=== PATIENT | female | born 1945 | race Caucasian/White ===

== ENCOUNTER → 2017-09-24 | Outpatient (CLI) | payer OTHER, BC | LOC: FIMAGING 10:21 | PROVIDERS: ATTEND Internal Medicine | DX: Z12.31 Encounter for screening mammogram for malignant neoplasm of breast (principal) | CPT/HCPCS: G0202 ==

== ENCOUNTER 2018-07-28 07:50 | Day surgery (SDC) | payer OTHER, BC ==
[2018-07-28] MEDS ORDERED: LR 1,000 ML IV ONE (08:05)
[2018-07-28] MEDS ORDERED: LIDOCAINE 1% 2 ML INJ ID PRN (08:05)
[2018-07-28] MEDS ORDERED: PROPOFOL/EMULSION 500 MG/50 ML BOTTLE IV ONE (09:31)
[2018-07-28] MEDS ORDERED: MIDAZOLAM 2 MG/2 ML VIAL ONE (09:31)
--- NOTE | 2018-07-28 09:33 | PDGENHP ---
History and Physical - Chief Complaint FRANCISCO - History of Present Illness Chronic FRANCISCO here for 2 years F/U colonoscopy for surveillance biopsies. History Information - Allergies/Home Medication List Allergies/Adverse Reactions: amitriptyline HCl [From Elavil] Allergy (Verified 05/14/16 10:09) HEADACHE diclofenac Allergy (Verified 10/03/15 11:01) Diarrhea duloxetine HCl [From Cymbalta] Allergy (Verified 10/03/15 11:01) Vomiting Sulfa (Sulfonamide Antibiotics) Allergy (Verified 10/03/15 11:01) Swelling/neck,face,throat Home Medications: Cholecalciferol (Vitamin D3) [Vitamin D3] 4,000 unit PO DAILY 09/27/15 [Last Taken 07/27/18] Citalopram Hydrobromide [Celexa] 40 mg PO HS 09/27/15 [Last Taken 07/26/18] Herbals/Supplements -Info Only 1 ea PO DAILY 09/27/15 [Last Taken 07/27/18] I have personally reviewed and updated: family history, medical history, social history, surgical history - Past Medical History no pertinent PMH - Surgical History Reports: no pertinent surgical hx - Family History Positive for: non-pertinent - Social History Smoking Status: Never smoked Review of Systems Review of Systems: ROS: 10pt was reviewed & negative except for what was stated in HPI & below Physical Exam Physical Exam: Temp Pulse Resp BP Pulse Ox 37.0 C 77 20 127/83 H 96 07/28/18 08:26 07/28/18 08:26 07/28/18 08:26 07/28/18 08:26 07/28/18 08:26 Constitutional: no apparent distress, appears nourished Cardiovascular: regular rate and rhythym, no murmur, rub, or gallop Respiratory: no respiratory distress, no rales or rhonchi, clear to auscultation Gastrointestinal: normoactive bowel sounds, soft, non-tender abdomen, no palpable masses Skin: warm, normal color Neurologic: AAOx3, sensation intact bilaterally Assessment & Plan Assessment: FRANCISCO; R/O dysplasia. Plan: Surveillance colonoscopy with random bx's.
[2018-07-28] MEDS ORDERED: oxyCODONE IR 5 MG TAB PO PRN (09:40)
[2018-07-28] MEDS ORDERED: HYDROCODONE/APAP 5/325 TAB PO PRN (09:40)
[2018-07-28] MEDS ORDERED: ACETAMINOPHEN 500 MG TAB PO PRN (09:40)
[2018-07-28] MEDS ORDERED: NALOXONE HCL 0.4 MG/ML INJ IVP PRN (09:40)
[2018-07-28] MEDS ORDERED: ALBUTEROL 3 ML DEYVIAL IH PRN (09:40)
[2018-07-28] MEDS ORDERED: LR 500 ML IV PRN (09:40)
[2018-07-28] MEDS ORDERED: ONDANSETRON 4 MG/2 ML VIAL IVP PRN (09:40)
[2018-07-28] MEDS ORDERED: fentaNYL 100 MCG/2 ML INJ IVP PRN (09:40)
--- NOTE | 2018-07-28 09:40 | PDANEPAE ---
ANE Past Medical History - Cardiovascular History Hx Hypertension: No Hx Arrhythmias: No Hx Chest Pain: No Hx Coronary Artery / Peripheral Vascular Disease: No Hx CHF / Valvular Disease: No Hx Palpitations: No Cardiovascular History Comment: HX DVT 2002 L CALF - Pulmonary History Hx COPD: No Hx Asthma/Reactive Airway Disease: No Hx Recent Upper Respiratory Infection: No Hx Oxygen in Use at Home: No Hx Sleep Apnea: No Sleep Apnea Screening Result - Last Documented: Negative - Neurologic History Hx Cerebrovascular Accident: No Hx Seizures: No Hx Dementia: No - Endocrine History Hx Diabetes: No - Renal History Hx Renal Disorders: No - Liver History Hx Hepatic Disorders: No - Neurological & Psychiatric Hx Hx Neurological and Psychiatric Disorders: Yes Neurological / Psychiatric History Comment: CHRONIC PAIN SYNDROME. ANXIETY, PANIC ATTACKS, DEPRESSION - Cancer History Hx Cancer: Yes Cancer History Comment: SKIN CA BASAL CELL AND SQUAMOUS CELL - Congenital Disorder History Hx Congenital Disorders: No - GI History Hx Gastrointestinal Disorders: Yes Gastrointestinal History Comment: CHRONS DISEASE - Other Health History Other Health History: HX DVT R LEG. FIBROMYALGIA. OSTEOPOROSIS. BRUISES EASILY. CHRONIC L KNEE PAIN - Chronic Pain History Chronic Pain: Yes (CHRONIC PAIN BACK, KNEE, HIP, FROM FIBROMYALGIA) - Surgical History Prior Surgeries: R JOVANA. COLONSOCOPY 2013. TLKR 1993. COLONSCOPY 2010. 3 OR 4 SCOPES ON LEFT KNEE PRIOR TO KNEE REPLACEMENT. TONSILLECTOMY. D&C FOR MISSED AB ANE Review of Systems Review of Systems: - Exercise capacity METS (RN): 4 METS ANE Patient History - Allergies Allergies/Adverse Reactions: amitriptyline HCl [From Elavil] Allergy (Verified 05/14/16 10:09) HEADACHE diclofenac Allergy (Verified 10/03/15 11:01) Diarrhea duloxetine HCl [From Cymbalta] Allergy (Verified 10/03/15 11:01) Vomiting Sulfa (Sulfonamide Antibiotics) Allergy (Verified 10/03/15 11:01) Swelling/neck,face,throat - Home Medications Home Medications: Cholecalciferol (Vitamin D3) [Vitamin D3] 4,000 unit PO DAILY 09/27/15 [Last Taken 07/27/18] Citalopram Hydrobromide [Celexa] 40 mg PO HS 09/27/15 [Last Taken 07/26/18] Herbals/Supplements -Info Only 1 ea PO DAILY 09/27/15 [Last Taken 07/27/18] - NPO status NPO Since - Liquids (Date): 07/28/18 NPO Since - Liquids (Time): 08:00 NPO Since - Solids (Date): 07/26/18 NPO Since - Solids (Time): 19:00 - Smoking Hx Smoking Status: Never smoked - Family Anes Hx Family Hx Anesthesia Complications: NONE ANE Labs/Vital Signs - Vital Signs Blood Pressure: 127/83 Heart Rate: 77 Respiratory Rate: 20 O2 Sat (%): 96 Height: 162.56 cm Weight: 49.895 kg ANE Physical Exam - Airway Neck exam: FROM Mallampati Score: Class 1 Mouth exam: normal dental/mouth exam - Pulmonary Pulmonary: no respiratory distress, no rales or rhonchi, clear to auscultation - Cardiovascular Cardiovascular: regular rate and rhythym, no murmur, rub, or gallop, pulses symmetric bilaterally - ASA Status ASA Status: III ANE Anesthesia Plan Anesthesia Plan: GA with mask
--- NOTE | 2018-07-28 10:00 | GIREPORT ---
[facility] - Endoscopy Department Patient Name: Margret Arriola Procedure Date: 07/28/2018 8:35 AM Patient Type: Outpatient Attending / ER Physician: Franck Ortiz MD Procedure: Colonoscopy Indications: High risk colon cancer surveillance: Ulcerative pancolitis of 8 (or mor e) years duration Providers: Franck Ortiz MD Medicines: Propofol per Anesthesia Complications: No immediate complications. Description of Procedure: After obtaining informed consent, the scope was passed under direct vis ion. Throughout the procedure, the patient's blood pressure, pulse, and oxyg en saturations were monitored continuously. The Colonoscope with irrigatio n channel was introduced through the anus and advanced to the terminal il eum. The colonoscopy was performed without difficulty. The patient tolerated the procedure well. The quality of the bowel preparation was good. Findings: The terminal ileum appeared normal. The colon (entire examined portion) appeared normal. One to 2 biopsies were taken every 10 cm with a cold forceps from the entire colon for ulcerat kvng colitis surveillance. These biopsy specimens from the entire colon were sent to Pathology. Scattered diverticula were found in the sigmoid colon. The perianal and digital rectal examinations were normal. Estimated Blood Loss: Estimated blood loss: none. Post Op Diagnosis: - The examined portion of the ileum was normal. - The entire examined colon is normal. Biopsied. - Diverticulosis in the sigmoid colon. Recommendation: - Discharge patient to home (with escort). - Patient has a contact number available for emergencies. The signs and symptoms of potential delayed complications were discussed with the pat ient. Return to normal activities tomorrow. Written discharge instructions we re provided to the patient. - Advance diet as tolerated today. - Continue present medications. - Await pathology results. - Repeat colonoscopy in 2 years for surveillance at our ASC in [place] with Propofol. Attending Participation: I personally performed the entire procedure. Franck Ortiz MD Franck Ortiz MD 07/28/2018 9:59:59 AM This report has been signed electronicallyFranck Ortiz MD Number of Addenda: 0 Note Initiated On: 07/28/2018 8:35 AM Total Procedure Duration Time 0 hours 19 minutes 50 seconds [email or web address]
--- NOTE | 2018-07-28 10:04 | POSTANESTH ---
Post Anesthetic Evaluation Cardiovascular Status: Normal, Stable, Similar to Pre-Op Cond Respiratory Status: Normal, Stable, Similar to Pre-op Cond. Level of Consciousness/Mental Status: Moderately Sleepy Pain Control: Adequate, Prn Tx Ordered Nausea/Vomiting Control: Adequate, Prn Tx Ordered Complications Possibly Related to Anesthesia: None Noted
[2018-07-28 10:35] VITALS: BP 115/71
== END 2018-07-28 11:05 | disposition home or self-care (01) ==
LOC: FSGY 07:50
PROVIDERS: ATTEND Internal Medicine Gastroenterology
PROC: 0DBN8ZX Excision of Sigmoid Colon, Via Natural or Artificial Opening Endoscopic, Diagnostic (ICD-10-PCS; principal; 2018-07-28 09:30)
DX: K57.30 Diverticulosis of large intestine without perforation or abscess without bleeding (principal); K51.00 Ulcerative (chronic) pancolitis without complications
CPT/HCPCS: J2250; J2704

== ENCOUNTER → 2018-09-21 | Outpatient (CLI) | payer OTHER, BC | LOC: FIMAGING 09:48 | PROVIDERS: ATTEND Orthopaedic Surgery | PROC: CP161ZZ Planar Nuclear Medicine Imaging of Pelvis using Technetium 99m (Tc-99m) (ICD-10-PCS; principal; 2018-09-21) | DX: Z13.828 Encounter for screening for other musculoskeletal disorder (principal); Z96.641 Presence of right artificial hip joint | CPT/HCPCS: 78315; A9503 ==

== ENCOUNTER → 2018-12-09 | Outpatient (CLI) | payer OTHER, BC | LOC: CIMAGING 13:29 | PROVIDERS: ATTEND Family Medicine | DX: M25.552 Pain in left hip (principal) | CPT/HCPCS: 73502-PO; 81005; G0480; G0483 ==